=== PATIENT | female | born 1985 | race Caucasian/White ===

== ENCOUNTER 2021-01-11 17:50 | Inpatient (IN) ==
[2021-01-11 20:30] LABS: ABS Lymphocytes 1.7 10^3/ul (1.0-4.8); ABS Monocytes 0.5 10^3/ul (0-0.8); ABS Neutrophils 8.4 10^3/ul (1.5-7.7); Eosinophil % 0.2 %; Hematocrit 30 % (35-47); Lymphocyte % 15.5 %; Mean Corpuscular HGB Conc 34 g/dL (31-36); Mean Corpuscular Hemoglobin 27 pg (27-31); Mean Corpuscular Volume 80 fL (80-97); Mean Platelet Volume 8.5 fL (7.4-10.4); Nucleated Red Blood Cells % 0.1; Platelet Count 284 10^3/uL (150-450); Red Blood Count 3.72 10^6 /uL (3.70-4.87); Red Cell Distribution Width 17 % (10-15); White Blood Count 10.7 10^3/uL (3.5-10.8)
[2021-01-11] MEDS: CMCS:Omeprazole 20 mg CAP (NF) PO SCH (20:44)
[2021-01-11 20:46] LABS: Albumin/Globulin Ratio 0.8 (1-3); Calcium 9.1 mg/dL (8.6-10.3); Globulin 3.9 g/dL (2-4); Potassium 3.7 mmol/L (3.5-5.0); Total Bilirubin 0.2 mg/dL (0.2-1.0); Total Protein 6.9 g/dL (6.4-8.9)
[2021-01-12] MEDS ORDERED: Lactated Ringers 1000 ml BAG 1,000 ML IV ONE ×2 (09:57→21:04)
[2021-01-12] MEDS ORDERED: Buffered Lidocaine 1% SYRIN 1 ml INTRADERM ONE (09:57)
[2021-01-12] MEDS ORDERED: Lactated Ringers 1000 ml BAG 1,000 ML IV SCH ×2 (10:00→22:00)
[2021-01-12] MEDS ORDERED: Morphine 10 MG/ML VIAL (1 ml) IV ONE (10:16)
[2021-01-12] MEDS ORDERED: Promethazine INJ(RESTRICTED) 25 MG/ML 1 ml VIAL IV ONE (10:17)
[2021-01-12 10:54] LABS: Urine Appearance Cloudy; Urine Bilirubin Negative (Negative); Urine Blood Negative (Negative); Urine Color Yellow; Urine Glucose Negative (Negative); Urine Ketones Negative (Negative); Urine Nitrite Negative (Negative); Urine Protein 1+(30 mg/dL) (Negative); Urine Specific Gravity 1.027 (1.002-1.030); Urine Urobilinogen Negative (Negative)
[2021-01-12] MEDS ORDERED: Oxytocin in LR 20 UNITS/1,000 ML BAG IVPB SCH (11:00)
[2021-01-12 11:01] LABS: Urine Bacteria 1+ (Absent); Urine Red Blood Cell Absent (Absent); Urine Squamous Epithelial Cell Present (Absent); Urine White Blood Cell 1+(6-10/hpf) (Absent)
[2021-01-12 11:15] LABS: Urine Benzodiazepine Screen None Detected (None Detect); Urine Cannabinoids Screen None Detected (None Detect); Urine Opiates Screen None Detected (None Detect)
[2021-01-12 13:02] LABS: Rapid COVID-19 Molecular Undetected (Undetected)
[2021-01-12] MEDS ORDERED: OBEPIDURAL 250 ML EPIDURAL ONE (20:16)
[2021-01-12] MEDS ORDERED: EPHEDrine (Pressors) 50 MG/ML VIAL IV PUSH PRN (21:04)
[2021-01-12] MEDS ORDERED: Lactated Ringers 1000 ml BAG 500 ML IV PRN (21:04)
[2021-01-12] MEDS ORDERED: Sodium Citrate/Citric Acid LIQ 15 ML UDC PO PRN (21:04)
[2021-01-12] MEDS ORDERED: Phenylephrine 40 mcg/mL 10mL (400mcg) SYRINGE IV PUSH PRN (21:04)
[2021-01-12] MEDS: CMCS:Omeprazole 20 mg CAP (NF) PO SCH (21:32)
[2021-01-12] MEDS ORDERED: OBEPIDURAL 250 ML EPIDURAL SCH (22:00)
[2021-01-13 08:42] LABS: ABS Basophils 0.1 10^3/ul (0-0.2); ABS Lymphocytes 1.4 10^3/ul (1.0-4.8); ABS Monocytes 0.7 10^3/ul (0-0.8); ABS Neutrophils 13.8 10^3/ul (1.5-7.7); Eosinophil % 0.1 %; Hematocrit 31 % (35-47); Hemoglobin 10.2 g/dL (12.0-16.0); Lymphocyte % 8.6 %; Mean Corpuscular HGB Conc 33 g/dL (31-36); Mean Corpuscular Hemoglobin 26 pg (27-31); Mean Corpuscular Volume 81 fL (80-97); Nucleated Red Blood Cells % 0.1; Red Blood Count 3.87 10^6 /uL (3.70-4.87); Red Cell Distribution Width 17 % (10-15)
[2021-01-13 08:56] LABS: Albumin 2.8 g/dL (3.2-5.2); Albumin/Globulin Ratio 0.8 (1-3); Calcium 8.5 mg/dL (8.6-10.3); Globulin 3.6 g/dL (2-4); Potassium 3.4 mmol/L (3.5-5.0); Total Bilirubin 0.3 mg/dL (0.2-1.0); Total Protein 6.4 g/dL (6.4-8.9); Uric Acid 5.7 mg/dL (2.3-6.6)
[2021-01-13 10:03] LABS: Mean Platelet Volume 8.8 fL (7.4-10.4); Platelet Count 207 10^3/uL (150-450)
[2021-01-13] MEDS ORDERED: Sodium Citrate/Citric Acid LIQ 15 ML UDC ONE (11:19)
[2021-01-13] MEDS ORDERED: ceFOXitin 2 GM IVPREMIX 2 GM/50 ML BAG ONE (11:20)
[2021-01-13] MEDS ORDERED: Morphine PF AMP (0.5MG/ML) 5 MG/10 ML AMP ONE (11:29)
[2021-01-13] MEDS ORDERED: fentaNYL 100 mcg/2 ml 50 MCG/ML VIAL ONE ×2 (11:29→13:45)
[2021-01-13] MEDS ORDERED: Lidocaine 1% VIAL 10 MG/ML VIAL ONE (12:00)
[2021-01-13] MEDS ORDERED: Phenylephrine 40 mcg/mL 10mL (400mcg) SYRINGE ONE (12:05)
[2021-01-13] MEDS ORDERED: Oxytocin 10 UNITS/ML 1 ML VIAL ONE (12:23)
[2021-01-13] MEDS ORDERED: Ondansetron 4 mg VIAL 2 MG/ML 2 ml VIAL ONE (12:46)
[2021-01-13] MEDS ORDERED: Metoclopramide 5 MG/ML VIAL (10 mg) ONE (12:49)
[2021-01-13] MEDS ORDERED: Ondansetron 4 mg VIAL 2 MG/ML 2 ml VIAL IV PRN ×2 (13:21)
[2021-01-13] MEDS ORDERED: Metoclopramide 5 MG/ML VIAL (10 mg) IV PRN (13:21)
[2021-01-13] MEDS ORDERED: fentaNYL 100 mcg/2 ml 50 MCG/ML VIAL IV PRN (13:21)
[2021-01-13] MEDS ORDERED: oxyCODONE/Acetamin 5/325 mg TAB PO PRN (13:21)
[2021-01-13] MEDS ORDERED: Naloxone 0.4 mg VIAL 0.4 mg/ml 1 ml VIAL IV PRN ×2 (13:21)
[2021-01-13] MEDS ORDERED: Witch Hazel PAD JAR TOPICAL PRN (14:25)
[2021-01-13] MEDS ORDERED: Glycerin ADULT 2.4 gm SUPP PR PRN (14:25)
[2021-01-13] MEDS ORDERED: Dibucaine 1% OINT 28.35 GM TUBE PR PRN (14:25)
[2021-01-13] MEDS ORDERED: Oxytocin in LR 20 UNITS/1,000 ML BAG IVPB SCH (15:00)
[2021-01-13] MEDS ORDERED: Lactated Ringers 1000 ml BAG 1,000 ML IV SCH (15:00)
[2021-01-13] MEDS: CMCS:Omeprazole 20 mg CAP (NF) PO SCH (21:41)
[2021-01-14] MEDS: Heparin 5000 UNITS/ML 1 mL VIAL SUBCUT SCH ×3 (06:23→22:20)
[2021-01-14 08:19] LABS: ABS Basophils 0.1 10^3/ul (0-0.2); ABS Lymphocytes 1.3 10^3/ul (1.0-4.8); ABS Monocytes 0.5 10^3/ul (0-0.8); ABS Neutrophils 10.5 10^3/ul (1.5-7.7); Eosinophil % 0.2 %; Hematocrit 25 % (35-47); Hemoglobin 8.2 g/dL (12.0-16.0); Lymphocyte % 10.8 %; Mean Corpuscular HGB Conc 33 g/dL (31-36); Mean Corpuscular Hemoglobin 27 pg (27-31); Mean Corpuscular Volume 81 fL (80-97); Mean Platelet Volume 8.2 fL (7.4-10.4); Platelet Count 215 10^3/uL (150-450); Red Blood Count 3.06 10^6 /uL (3.70-4.87); Red Cell Distribution Width 18 % (10-15); White Blood Count 12.4 10^3/uL (3.5-10.8)
[2021-01-14] MEDS: CMCS:Omeprazole 20 mg CAP (NF) PO SCH (21:15)
[2021-01-15] MEDS: Heparin 5000 UNITS/ML 1 mL VIAL SUBCUT SCH (06:35)
[2021-01-15] MEDS: CMCS:Omeprazole 20 mg CAP (NF) PO SCH (21:02)
[2021-01-16 08:09] VITALS: BP 148/78
== END 2021-01-16 11:59 | disposition home or self-care (01) | DRG 540 ==
LOC: MCHOBOUT 17:50 → MCHOB 01-12 09:59
PROVIDERS: ADMIT Obstetrics & Gynecology; ATTEND Obstetrics & Gynecology